=== PATIENT | female | born 1950 | race Hispanic/Latino ===

== ENCOUNTER 2016-12-12 08:35 | Inpatient (IN) | payer MEDICARE ==
[2016-11-15 11:35] VITALS: BMI 26.6
[2016-12-12] MEDS ORDERED: Bupivacaine 0.5% Inj(30mL) ONE (10:57)
[2016-12-12] MEDS ORDERED: Midazolam 2 MG/2 ML VIAL ONE (10:59)
[2016-12-12] MEDS ORDERED: Morphine 1 mg/ml preservative-free Inj(Duramorph) ONE (10:59)
[2016-12-12] MEDS ORDERED: Propofol 10 mg/ml Inj (20 ML) ONE (10:59)
[2016-12-12] MEDS ORDERED: Phenylephrine 10 mg/ml Inj ONE (11:10)
[2016-12-12] MEDS ORDERED: ePHEDrine 50 mg/ml Inj ONE (11:10)
[2016-12-12] MEDS ORDERED: Vancomycin 1 g Inj ONE (12:39)
--- NOTE | 2016-12-12 14:18 | PCM.SURG1 ---
Surgeon's Initial Post Op Note - Surgeon's Notes Surgeon: Oscar Valdovinos MD Earthmoving Plant Operator: Tom Brooke PA-C Type of Anesthesia: General LMA, Spinal Anesthesia Administered By: Dr. Ayala Pre-Operative Diagnosis: Left knee DJd Operative Findings: Tourniquet: @300mmHg Post-Operative Diagnosis: same Operation Performed: Left total knee replacement Specimen/Specimens Removed: bone Estimated Blood Loss: EBL {In ML}: 120 Blood Products Given: N/A Drains Used: Hemovac Post-Op Condition: Fair Date of Surgery/Procedure: 12/12/16 Time of Surgery/Procedure: 14:18
[2016-12-12] MEDS ORDERED: HYDROmorphone 0.5 mg/0.5 ml ISec IVP PRN (14:23)
[2016-12-12] MEDS ORDERED: HYDROmorphone 1 mg/ml PCA 25 ML IV PRN (14:26)
[2016-12-12] MEDS ORDERED: Lactated Ringer's 1,000 ML IV SCH (14:30)
[2016-12-12] MEDS ORDERED: ceFAZolin 2 GM in Sodium Chloride 0.9% 100 ML IVPB SCH (14:45)
--- NOTE | 2016-12-12 15:49 | RAD ---
PROCEDURE: Left Knee Radiographs. HISTORY: Pain. COMPARISON: None. FINDINGS: BONES: Status post left knee arthroplasty. Surgical drain. Anterior cutaneous joshua. No osseous fracture. JOINTS: As above JOINT EFFUSION: None. OTHER FINDINGS: None. IMPRESSION: Left knee arthroplasty.
--- NOTE | 2016-12-12 16:39 | OP ---
PROCEDURE DATE: 12/12/2016 PREOPERATIVE DIAGNOSIS: Left knee arthritis. POSTOPERATIVE DIAGNOSIS: Left knee arthritis. PROCEDURE: Left total knee arthroplasty. SURGEON: Toi Valdovinos MD HOME DELIVERY DRIVER: Kvng Brooke PA-C. Dr. Valdovinos was assisted by Kvng Brooke, the physician medical assistant dermatology. Edwardo was scrubbed and present throughout the case and assisted in the patient positioning, implementation of the implants, and wound closure. TYPE OF ANESTHESIA: Spinal with sedation. ESTIMATED BLOOD LOSS: 120 mL. COMPLICATIONS: None. IMPLANT: Biomet total knee system. INDICATIONS FOR PROCEDURE: This is a 66-year-old female with longstanding left knee pain. Clinical examination consistent with some joint line tenderness and mild varus deformity. Radiographic examination consistent with degenerative joint disease. After a period of failed nonsurgical management recommendation was for a left total knee arthroplasty. The risks, benefits, and alternatives of the procedure were discussed with the patient and informed consent was obtained. DESCRIPTION OF PROCEDURE: After the surgical site was signed and verified in the preoperative holding area, the patient was taken to the operating room and placed supine on the operating table. After administration of spinal anesthesia and sedation, the patient received 2 g of Ancef IV. Medeiros catheter was inserted. Tourniquet was placed about the left thigh. Care was taken to make sure all bony prominences and nerves were well padded and protected and left lower extremity was prepped and draped in the usual sterile fashion. Left lower extremity was exsanguinated using an Esmarch and the tourniquet was inflated. Approximately 10 cm longitudinal midline incision was made. Soft tissues were dissected sharply down to the knee joint. Medial parapatellar arthrotomy was made exposing the knee joint. The medial and lateral menisci of the anterior fat pad and ACL and PCL were all resected. Once the knee joint was adequate exposed step drill was then used to drill into the medullary canal the distal femur. Intramedullary distal femoral cutting block was inserted and pinned into the place. A distal femoral resection was performed. Next a femoral component was sized and 4-in-1 cutting block was pinned into place. Anterior and posterior cuts were performed. Next the box cut was performed on the distal femur. Attention was directed to the tibia. The extramedullary tibial cutting guide was pinned, satisfied with our alignment a tibial resection was performed. Flexion and extension gaps were then checked and was noted to be stable with varus and valgus stress with full extension and flexion. At this point, being careful to maintain the proper rotation of the medullary canal of the proximal tibial was reamed and punched with the cruciate punch. With the trial tibial, trial femur, and trial bearing in place, the knee was taken through the range of motion, was noted to be stable with full flexion and extension stable throughout the range of motion. Our attention was directed to the patella. Thickness was measured and a patellar resection was performed. Patellar button was sized and holes for patellar button were then drilled. Trial patella was placed and knee was taken through the range of motion. The patient was noted to have some lateral tilt and this was corrected by performing a lateral retinacular release. At this point, the trial components were removed and the knee joint was pulse lavaged with antibiotic saline solution. The bony surfaces were dried. The actual tibial, femoral, and patellar components were cemented into place. Care was taken to keep the knee extended while the cement was hardened. Once the cement was hardened, the wound was inspected for any debris and was once again pulse lavaged. The actual bearing was inserted and locked into place with a cross pin. The tourniquet was deflated and any obvious bleeding was cauterized. A medium Hemovac drain was inserted and arthrotomy was closed using #1 Vicryl sutures, subcutaneous tissue was closed using 2-0 Vicryl sutures, and the skin was closed using joshua. Sterile dressing was applied and a knee immobilizer was placed. The patient was awakened from the procedure and taken to the recovery room in stable condition. Toi Valdovinos MD
[2016-12-12] MEDS: Sodium Chloride 0.9% 1,000 ML IV SCH (18:07)
[2016-12-12] MEDS ORDERED: Pneumococcal 23-Valent Vaccine IM ONE (19:11)
[2016-12-12] MEDS: HYDROmorphone 1 mg/ml ISec IVP PRN (19:20)
[2016-12-12] MEDS: ceFAZolin 2 GM in Sodium Chloride 0.9% 100 ML IVPB SCH (20:17)
[2016-12-13] MEDS: HYDROmorphone 1 mg/ml ISec IVP PRN ×2 (00:27→05:16)
[2016-12-13] MEDS: Sodium Chloride 0.9% 1,000 ML IV SCH (03:04)
[2016-12-13] MEDS: ceFAZolin 2 GM in Sodium Chloride 0.9% 100 ML IVPB SCH (03:46)
[2016-12-13] MEDS: Levothyroxine 88 MCG TAB PO SCH (07:06)
[2016-12-13 07:38] LABS: BASO # 0.02 K/mm3 (0.0-2.0); BASO % 0.3 % (0.0-3.0); EOS # 0.2 (0.0-0.7); EOS % 2.8 % (1.5-5.0); GRAN # 3.89 (1.4-6.5); GRAN % 65.3 % (50.0-68.0); HEMATOCRIT 27.6 % (36.0-48.0); LYMPH # 1.4 (1.2-3.4); LYMPH % 23.1 % (22.0-35.0); MEAN CELL VOLUME 91.4 fl (80.0-105.0); MEAN CORPUSCULAR HEMOGLOBIN 29.5 pg (25.0-35.0); MEAN CORPUSCULAR HGB CONC 32.2 g/dl (31.0-37.0); MEAN PLATELET VOLUME 10.9 fl (7.0-11.0); MONO # 0.5 (0.1-0.6); MONO % 8.5 % (1.0-6.0); RED CELL DISTRIBUTION WIDTH 13.7 % (11.5-14.5)
[2016-12-13 07:48] LABS: BLOOD UREA NITROGEN 10 mg/dL (7-21); CARBON DIOXIDE 29 mmol/L (21-33); CHLORIDE 105 mmol/L (95-110); GFR AFRICAN-AMERICAN > 60; GLUCOSE,RANDOM 111 mg/dL (70-110); POTASSIUM 3.8 mmol/L (3.6-5.0); SODIUM 139 mmol/L (132-148)
[2016-12-13] MEDS ORDERED: HYDROmorphone 2 mg/ml ISec IVP STA (08:37)
[2016-12-13] MEDS: Morphine 15 mg SR Tab PO SCH ×2 (09:35→22:18)
[2016-12-13] MEDS: oxyCODONE 15 mg Immediate Release Tab PO SCH ×3 (09:36→17:01)
[2016-12-13] MEDS: Enoxaparin 30 mg Syringe SC SCH ×2 (09:37→22:19)
[2016-12-13] MEDS: Pantoprazole 40 mg EC Tab PO SCH (09:37)
[2016-12-13] MEDS ORDERED: MORPHINE SULFATE 15 MG PO SCH (10:00)
[2016-12-13] MEDS ORDERED: Morphine 15 mg SR Tab PO SCH (10:00)
--- NOTE | 2016-12-13 10:41 | CP.PCM.PN ---
Subjective - Date & Time of Evaluation Date of Evaluation: 12/13/16 Time of Evaluation: 10:39 - Subjective Subjective: Pt awake. States pain is not under control. Afebrile LLE: dressing intact hemovac in place on suction NVI distally HG 8.9 POD#1 Appreciate pain management input PT, DVT prophylaxis d/c planning Objective - Vital Signs/Intake and Output Vital Signs (last 24 hours): Temp Pulse Resp BP Pulse Ox 98.6 F 78 20 93/55 L 96 12/13/16 08:00 12/13/16 08:00 12/13/16 08:00 12/13/16 08:00 12/13/16 08:00 Intake and Output: 12/13/16 12/13/16 06:59 18:59 Intake Total 1680 Output Total 650 200 Balance 1030 -200 - Medications Medications: Current Medications Aspirin (Ecotrin) 81 mg PO DAILY [facility] Last Admin: 12/13/16 09:36 Dose: 81 mg Atorvastatin Calcium (Lipitor) 10 mg PO HS [facility] Last Admin: 12/12/16 22:09 Dose: 10 mg Docusate Sodium (Colace) 100 mg PO BID [facility] Last Admin: 12/13/16 09:35 Dose: 100 mg Docusate Sodium (Colace) 100 mg PO BID [facility] Enoxaparin Sodium (Lovenox) 30 mg SC 1000,2200 [facility] PRN Reason: Protocol Last Admin: 12/13/16 09:37 Dose: 30 mg Hydromorphone HCl (Dilaudid) 2 mg IVP Q2H PRN PRN Reason: Pain, severe (8-10) Levothyroxine Sodium (Synthroid) 88 mcg PO 0600 [facility] Last Admin: 12/13/16 07:06 Dose: 88 mcg Lorazepam (Ativan) 1 mg PO BID [facility] PRN Reason: Protocol Last Admin: 12/13/16 09:36 Dose: 1 mg Metoclopramide HCl (Reglan) 10 mg IV ONCE PRN PRN Reason: Nausea/Vomiting Montelukast Sodium (Singulair) 10 mg PO QPM [facility] Last Admin: 12/12/16 19:18 Dose: 10 mg Morphine Sulfate (Morphine Extended Release Tab) 15 mg PO Q12 [facility] Last Admin: 12/13/16 09:35 Dose: 15 mg Ondansetron HCl (Zofran Inj) 4 mg IVP Q6 PRN PRN Reason: Nausea/Vomiting Last Admin: 12/13/16 08:46 Dose: 4 mg Oxycodone HCl (Oxycodone Immediate Release Tab) 15 mg PO TID [facility] Last Admin: 12/13/16 09:36 Dose: 15 mg Pantoprazole Sodium (Protonix Ec Tab) 40 mg PO DAILY [facility] Last Admin: 12/13/16 09:37 Dose: 40 mg Sennosides (Senokot Tab) 17.2 mg PO HS [facility] Sertraline HCl (Zoloft) 75 mg PO DAILY [facility] Last Admin: 12/13/16 09:36 Dose: 75 mg Tizanidine HCl (Zanaflex) 4 mg PO TID [facility] Last Admin: 12/13/16 09:40 Dose: 4 mg Trazodone HCl (Desyrel) 100 mg PO HS [facility] Last Admin: 12/12/16 22:08 Dose: 100 mg Zolpidem Tartrate (Ambien) 5 mg PO HS PRN PRN Reason: Insomnia Last Admin: 12/12/16 22:09 Dose: 5 mg - Labs Labs: 12/13/16 07:32 12/13/16 07:32
[2016-12-13] MEDS: HYDROmorphone 2 mg/ml ISec IVP PRN ×5 (10:46→20:02)
[2016-12-13] MEDS ORDERED: Petrolatum Oint Foilpak (5 gm) TOP PRN (17:29)
[2016-12-14] MEDS: HYDROmorphone 2 mg/ml ISec IVP PRN ×2 (01:05→03:14)
--- NOTE | 2016-12-14 01:41 | CON ---
CHIEF COMPLAINT AND HISTORY OF PRESENT ILLNESS: This is a 66-year-old female who came in for elective surgery of the left knee. She had a total knee arthroplasty done secondary to severe arthritis. She was having difficulty in walking. She has a primary care doctor who does not come to this hospital, and I have asked Dr. Valdovinos to evaluate the patient for her arthritis and her pain management postop. The patient noticed she was placed on a FINANCIAL RECORDING CLERK pump, but she was not able to use it. She was having back pain throughout the night. She was crying and saying that she was having 10/10 pain. The patient says she is very uncomfortable. She has a Medeiros catheter in place, does not wish for it to be removed. She has been on high-dose narcotics as an outpatient. She sees Dr. Garcia, who is her paint brush maker. The patient denies any chest pain, no shortness of breath, no headache, no dizziness, no nausea, no vomiting, no dysuria, frequency or headaches. REVIEW OF SYSTEMS: All other review of symptoms are within normal limits. PAST MEDICAL HISTORY: Constipation, chronic neck pain, bilateral carpal tunnel syndrome, insomnia. PAST SURGICAL HISTORY: 1. Bilateral mastectomy. 2. Cervical laminectomy. 3. Right wrist surgery. SOCIAL HISTORY: She was smoking, quit in 1998. She drinks socially. FAMILY HISTORY: Noncontributory. PHYSICAL EXAMINATION VITAL SIGNS: Temperature is 98, pulse of 91, blood pressure is 108/60, respirations 20, O2 saturation 96%. Height is 5 feet 1.5 inches, weight is 143 pounds, BMI is 26.6. GENERAL: The patient lying in bed, uncomfortable, and in no acute distress. HEENT: Atraumatic and normocephalic. Anicteric sclerae. Moist mucosa. [place] conjunctivae. No oral lesions. NECK: No JVD, anterior and posterior adenopathy, thyromegaly, or bruits. CARDIOVASCULAR: S1 and S2 regular. No murmur, rubs, or gallop. LUNGS: Clear to auscultation bilaterally. No wheezes, rales, or rhonchi. ABDOMEN: Bowel sounds are positive. Soft, nontender and nondistended. No hepatosplenomegaly. No rebound and no guarding. EXTREMITIES: Left knee, there is dressing in place. She is not able to pass the range of motion because of pain. NEUROLOGIC: No facial asymmetry. Tongue is midline. No uvula deviation. Power is 5/5 upper extremity and lower extremity. Sensation intact in upper extremity and lower extremity. PSYCHIATRIC: She is awake, alert and oriented x3. No anxiety or depression. She has normal affect. GENITOURINARY: No CVA tenderness. VASCULAR: 2+ pulses in the carotid pulses and pedal pulses. SKIN: No erythema or nodules SPINE: Shows normal curvature. EXTREMITIES: No cyanosis and clubbing, no edema. ASSESSMENT: 1. Left total knee arthroplasty. 2. Osteoarthritis/degenerative joint disease. 3. Dyslipidemia. 4. Hypothyroidism. 5. Constipation. 6. Anxiety. PLAN: The patient is currently admitted to the hospital. She has been placed back on her home medications, which is morphine extended release 15 mg q. 12 and oxycodone 15 mg three times a day as scheduled. I have also added Dilaudid 2 mg IV q. 12 hours for acute breakthrough pain. Discontinue the patient's FINANCIAL RECORDING CLERK. There is also consultation for Dr. Garcia for pain management. She is going to continue her Lipitor. She is on Lovenox for DVT prophylaxis. She is on Protonix daily. The patient is on her Singulair. She is going to continue her Synthroid for her hypothyroidism. She is on her regular diet. She is going to need physical therapy. She also should get her Medeiros catheter if continued. We will continue to follow the patient in the hospital. Dipak Caruso MD
[2016-12-14] MEDS ORDERED: HYDROmorphone 2 mg/ml ISec IVP PRN (06:13)
[2016-12-14] MEDS: Levothyroxine 88 MCG TAB PO SCH (06:33)
[2016-12-14 07:30] LABS: BASO # 0.02 K/mm3 (0.0-2.0); BASO % 0.3 % (0.0-3.0); EOS # 0.2 (0.0-0.7); EOS % 3.9 % (1.5-5.0); GRAN # 3.79 (1.4-6.5); GRAN % 63.9 % (50.0-68.0); HEMATOCRIT 27.8 % (36.0-48.0); LYMPH # 1.4 (1.2-3.4); LYMPH % 24.1 % (22.0-35.0); MEAN CELL VOLUME 91.4 fl (80.0-105.0); MEAN CORPUSCULAR HEMOGLOBIN 29.6 pg (25.0-35.0); MEAN CORPUSCULAR HGB CONC 32.4 g/dl (31.0-37.0); MEAN PLATELET VOLUME 11.1 fl (7.0-11.0); MONO # 0.5 (0.1-0.6); MONO % 7.8 % (1.0-6.0); RED CELL DISTRIBUTION WIDTH 13.4 % (11.5-14.5); WHITE BLOOD COUNT 5.9 10^3/ul (4.5-11.0)
[2016-12-14 07:42] LABS: BLOOD UREA NITROGEN 11 mg/dL (7-21); CALCIUM 8.6 mg/dL (8.4-10.5); CARBON DIOXIDE 30 mmol/L (21-33); CHLORIDE 100 mmol/L (95-110); GFR AFRICAN-AMERICAN > 60; GLUCOSE,RANDOM 121 mg/dL (70-110); POTASSIUM 3.6 mmol/L (3.6-5.0); SODIUM 138 mmol/L (132-148)
[2016-12-14 08:40] VITALS: PULSE 48; RESP 16; TEMP 98.3; O2SAT 94
--- NOTE | 2016-12-14 08:54 | CP.PCM.PN ---
Subjective - Date & Time of Evaluation Date of Evaluation: 12/14/16 Time of Evaluation: 08:52 - Subjective Subjective: Pt awake, alert. Feels much better today. Adequate pain control. Afebrile L knee: dressing changed incision clean and intact no drainage Hemovac d/c'd NVI distally Hg 9.0 POD #2 Stable for rehab today Objective - Vital Signs/Intake and Output Vital Signs (last 24 hours): Temp Pulse Resp BP Pulse Ox 98.3 F 48 L 16 80/35 L 94 L 12/14/16 08:38 12/14/16 08:38 12/14/16 08:38 12/14/16 08:38 12/14/16 08:38 Intake and Output: 12/14/16 12/14/16 06:59 18:59 Intake Total 600 Output Total 200 Balance 400 - Medications Medications: Current Medications Aspirin (Ecotrin) 81 mg PO DAILY [facility] Last Admin: 12/13/16 09:36 Dose: 81 mg Atorvastatin Calcium (Lipitor) 10 mg PO HS [facility] Last Admin: 12/12/16 22:09 Dose: 10 mg Docusate Sodium (Colace) 100 mg PO BID [facility] Last Admin: 12/13/16 17:01 Dose: 100 mg Emollient Ointment (Vaseline Oint) 5 gm TOP BID PRN PRN Reason: Dry skin Last Admin: 12/13/16 17:46 Dose: 5 gm Enoxaparin Sodium (Lovenox) 30 mg SC 1000,2200 [facility] PRN Reason: Protocol Last Admin: 12/13/16 22:19 Dose: 30 mg Hydromorphone HCl (Dilaudid) 2 mg IVP Q3H PRN PRN Reason: Pain, severe (8-10) Last Admin: 12/14/16 06:36 Dose: 2 mg Levothyroxine Sodium (Synthroid) 88 mcg PO 0600 [facility] Last Admin: 12/14/16 06:33 Dose: 88 mcg Lorazepam (Ativan) 1 mg PO BID [facility] PRN Reason: Protocol Last Admin: 12/13/16 17:00 Dose: 1 mg Metoclopramide HCl (Reglan) 10 mg IV ONCE PRN PRN Reason: Nausea/Vomiting Montelukast Sodium (Singulair) 10 mg PO QPM [facility] Last Admin: 12/12/16 19:18 Dose: 10 mg Morphine Sulfate (Morphine Extended Release Tab) 15 mg PO Q12 [facility] Last Admin: 12/13/16 22:18 Dose: 15 mg Ondansetron HCl (Zofran Inj) 4 mg IVP Q6 PRN PRN Reason: Nausea/Vomiting Last Admin: 12/13/16 08:46 Dose: 4 mg Oxycodone HCl (Oxycodone Immediate Release Tab) 15 mg PO TID [facility] Last Admin: 12/13/16 17:01 Dose: 15 mg Pantoprazole Sodium (Protonix Ec Tab) 40 mg PO DAILY [facility] Last Admin: 12/13/16 09:37 Dose: 40 mg Sennosides (Senokot Tab) 17.2 mg PO HS [facility] Sertraline HCl (Zoloft) 75 mg PO DAILY [facility] Last Admin: 12/13/16 09:36 Dose: 75 mg Tizanidine HCl (Zanaflex) 4 mg PO TID [facility] Last Admin: 12/13/16 17:01 Dose: 4 mg Trazodone HCl (Desyrel) 100 mg PO HS [facility] Last Admin: 12/13/16 22:56 Dose: 100 mg Zolpidem Tartrate (Ambien) 5 mg PO HS PRN PRN Reason: Insomnia Last Admin: 12/13/16 22:56 Dose: 5 mg - Labs Labs: 12/14/16 07:00 12/14/16 07:00
[2016-12-14] MEDS: Pantoprazole 40 mg EC Tab PO SCH (11:00)
[2016-12-14] MEDS: Morphine 15 mg SR Tab PO SCH (11:00)
[2016-12-14] MEDS: oxyCODONE 15 mg Immediate Release Tab PO SCH ×2 (11:00→14:51)
[2016-12-14] MEDS: Enoxaparin 30 mg Syringe SC SCH (11:01)
[2016-12-14 11:34] VITALS: BP 109/61
--- NOTE | 2016-12-14 12:04 | PN ---
SUBJECTIVE: The patient has no complaints of any chest pain, no shortness of breath, no headaches. She states her pain is somewhat better than yesterday, but still had significant pain that was requiring Dilaudid, she says at times is 10/10. She does have difficulty time in sleeping because of the pain. She states that she has a low pain threshold. PHYSICAL EXAMINATION: VITAL SIGNS: Temperature is 98.5, pulse is 94, blood pressure is 89/45, respirations 20. GENERAL: The patient is lying in bed, flat, comfortable. HEENT: No oral lesion. Anicteric sclerae. Moist mucosa. NECK: No JVD, adenopathy, or thyromegaly. CARDIOVASCULAR: S1 and S2, regular. No murmurs, rubs, or gallops. LUNGS: Clear to auscultation bilaterally. No wheeze, rales, or rhonchi. ABDOMEN: Bowel sounds are positive, soft, nontender and nondistended. EXTREMITIES: No cyanosis, clubbing or edema. LABORATORY DATA: Hemoglobin is 8.9. Creatinine is 0.5. ASSESSMENT: 1. Left total knee arthroplasty, postoperative day #2. 2. Osteoarthritis/degenerative joint disease. 3. Dyslipidemia. 4. Hypothyroidism. 5. Constipation. 6. Anxiety. PLAN: The patient is currently on Ambien for sleep. She is going to continue with Ativan. She is on trazodone at night as well. She is receiving Dilaudid for breakthrough pain. She is on Lipitor for dyslipidemia. She is on Lovenox for DVT prophylaxis. She is on her maintenance pain medications with oxycodone and morphine. She is on Protonix daily. I also started her on Sennosides for constipation. She is Synthroid for hypothyroidism. She is going to continue Zoloft. The patient was warned about minimizing her Dilaudid as her blood pressure is also starting to get affected. I will change her Dilaudid to q. 3 hours. She had her Medeiros taken out yesterday, but had difficulty with urination. I believe that she is going to have in rehabing because of her chronic pain issues, the fact that she has a low pain tolerance; this will interfere with her rehabilitation. She was told the importance of trying to work with physical therapy and trying to decrease her medication usage so that it does not cause side effects and further dependence. Dipak Caruso MD
== END 2016-12-14 16:29 | DRG 470 ==
LOC: SDAINP 08:35 → EDSTATUS 11:00 → 5RSO 16:27
PROVIDERS: ADMIT Orthopaedic Surgery; ATTEND Orthopaedic Surgery
PROC: 0SRD0J9 Replacement of Left Knee Joint with Synthetic Substitute, Cemented, Open Approach (ICD-10-PCS; principal; 2016-12-12 11:00)
DX: M17.12 Unilateral primary osteoarthritis, left knee (principal); E03.9 Hypothyroidism, unspecified; E78.5 Hyperlipidemia, unspecified; K59.00 Constipation, unspecified; F41.9 Anxiety disorder, unspecified